=== PATIENT | female | born 1990 | race Caucasian/White ===

== ENCOUNTER → 2020-04-18 09:19 | Outpatient (BNVA) | payer SELFPAY | PROVIDERS: Family Provider Family Medicine; Visit Provider Specialist | DX: G43.711 Chronic migraine without aura, intractable, with status migrainosus (principal); M54.12 Radiculopathy, cervical region | CPT/HCPCS: 99204 ==

== ENCOUNTER 2020-05-03 07:09 | Outpatient (CLI) | payer SELFPAY ==
--- NOTE | 2020-05-03 07:14 | MR_ITS ---
WS: [id number] MRI CERVICAL SPINE NONCONTRAST TECHNIQUE: Sagittal T1, T2 and STIR imaging. Axial T2, gradient, and fiesta imaging. CLINICAL INFORMATION: CERVICALGIA COMPARISON: None. FINDINGS: Straightening of the normal cervical lordosis. Cord signal is normal. No high-grade central canal patricio nosis. C2-C3: Normal. C3-C4: No significant disc bulging. Spinal canal and foramen are patent. C4-C5: No significant disc bulging. Spinal canal and foramen are patent. Mild facet arthropathy. C5-C6: No significant disc bulging. Mild osteophytic ridging. Mild facet arthropathy. Spinal canal an d foramen are patent. C6-C7: No significant disc bulging. Mild osteophytic ridging. Spinal canal and foramen are patent. C7-T1: Mild left bony foraminal narrowing. Spinal canal and foramen are patent. Visualized brain stem structures: Normal. Prevertebral soft tissues: Normal. MR/MR cervical spin wo con* [id number] IMPRESSION: 1. Straightening of the normal cervical lordosis. Cord signal is normal. No hi gh-grade central canal narrowing. 2. Mild facet arthropathy mid cervical spine at left C4-5 and bilateral C5-C6. 3. Mild left C7-T1 bony foraminal narrowing. 4. No other significant findings.
== END 2020-05-03 07:10 | disposition home or self-care (01) ==
PROVIDERS: Visit Provider Specialist
DX: M47.812 Spondylosis without myelopathy or radiculopathy, cervical region (principal)
CPT/HCPCS: 72141